=== PATIENT | female | born 1995 | race Asian ===

== ENCOUNTER 2021-08-24 17:07 | Emergency (ER) | payer SELFPAY ==
--- NOTE | 2021-08-24 17:12 | NUR ---
Attempted to traige pt, pt not found in ER waiting room or outside ER.
== END 2021-08-24 17:18 | disposition left against medical advice (07) ==
LOC: ER 17:10
DX: Z53.21 Procedure and treatment not carried out due to patient leaving prior to being seen by health care provider (principal)